=== PATIENT | female | born 1980 | race Caucasian/White ===

== ENCOUNTER 2024-04-04 01:52 | Emergency (ER) | payer OTHER, SELFPAY ==
[2024-04-04 03:06] VITALS: BP 151/92; PULSE 88; RESP 16; TEMP 36.6; O2SAT 97
--- NOTE | 2024-04-04 03:08 | PC.NURSE ---
Patient states that she took a bath with bleach tonight to help with the rash
[2024-04-04 03:30] VITALS: BP 125/94; PULSE 83; RESP 16; O2SAT 98
[2024-04-04 05:24] VITALS: BP 125/66; PULSE 77; RESP 16; O2SAT 97
[2024-04-04] MEDS: dexAMETHasone SOD PHOS INJ 10 MG/ML 1 ML VIAL IM (05:51)
--- NOTE | 2024-04-04 05:56 | ED.GENADULT ---
HPI - General Adult General Chief complaint: Unspecified Stated complaint: generalized body rash Time Seen by Provider: 04/04/24 05:39 History of Present Illness HPI narrative: Patient is a 43-year-old female who presents emergency department with chief complaint of urticaria and rash. The patient reports that she recently was treated for poison myra completed her course of steroids and reports that she has now had return of the rash patient states that she is itching all over reports that she does have hydroxyzine at home. The patient reports no airway compromise denies angioedema of the mouth or tongue. The patient reports that she also may have been exposed to bedbugs. Related Data Allergies Allergy/AdvReac Type Severity Reaction Status Date / Time hydrocodone AdvReac Unknown Nausea and Verified 04/04/24 02:03 Vomiting Review of Systems Review of Systems: A 10 system review of systems was completed on the patient and is negative except for what is stated in the HPI. Nursing and ancillary documentation was reviewed. [facility]LY [facility] Past Medical History Medical History Anxiety Depression Encounter for IUD insertion 11/29/08 Mirena insertion Encounter for IUD removal 04/23/09 Mirena removal Nexplanon insertion 05/15/15 Surgical History Surgical History History of cholecystectomy (12/08/16) Family History Family History Mother Hypertension Father Malignant neoplasm of liver Other Breast cancer paternal aunt Exam Narrative: GENERAL: Well-appearing, well-nourished, and in no acute distress. HEAD: Normocephalic, atraumatic. EYES: PERRLA and EOMI. ENT: Nares clear, no rhinorrhea or epistaxis. Mucous membranes moist. NECK: Supple. CHEST: Clear to auscultation. No respiratory distress. HEART: Regular rate and rhythm. No murmur heard. Normal peripheral pulses. ABDOMEN: Soft, nontender, nondistended, normal active bowel sounds. EXTREMITIES: Normal range of motion. No edema. SKIN: Erythematous rash amongst the upper extremities lower extremities and face.. NEURO: No focal deficits. Alert and oriented x3. PSYCH: Normal mood and affect. Course Vital Signs Vital signs: Vital Signs Temperature 36.6 C 04/04/24 03:06 Pulse Rate 88 04/04/24 03:06 Respiratory Rate 16 04/04/24 03:06 Blood Pressure 151/92 H 04/04/24 03:06 Pulse Oximetry 97 04/04/24 03:06 Temperature 36.6 C 04/04/24 03:06 Pulse Rate 77 04/04/24 05:24 Respiratory Rate 16 04/04/24 05:24 Blood Pressure 125/66 04/04/24 05:24 Pulse Oximetry 97 04/04/24 05:24 Medical Decision Making MDM Narrative Medical decision making narrative: Differential diagnosis includes poison myra, contact dermatitis, allergic reaction The patient was given a dose of Decadron in the emergency department started on prednisone 40 mg daily the patient should follow-up with her primary care provider There was also some question of whether the patient has been exposed to bedbugs the patient's exam was more consistent with poison myra or contact dermatitis reaction the patient was given information on bed bug bites Vital Signs Vital Signs: Vital Signs Temperature 36.6 C 04/04/24 03:06 Pulse Rate 88 04/04/24 03:06 Respiratory Rate 16 04/04/24 03:06 Blood Pressure 151/92 H 04/04/24 03:06 Pulse Oximetry 97 04/04/24 03:06 Temperature 36.6 C 04/04/24 03:06 Pulse Rate 77 04/04/24 05:24 Respiratory Rate 16 04/04/24 05:24 Blood Pressure 125/66 04/04/24 05:24 Pulse Oximetry 97 04/04/24 05:24 Discharge Plan Discharge Clinical Impression: Poison myra, Allergic reaction Patient Disposition: Home, Self-Care Condition: Stable Instructions: Antibiotic Form, Poison Myra (ED), Allergies (ED),
== END 2024-04-04 06:15 | disposition home or self-care (01) ==
PROVIDERS: Emergency Provider Emergency Medicine; PCP Physician Assistant
DX: L23.7 Allergic contact dermatitis due to plants, except food (principal); Z90.49 Acquired absence of other specified parts of digestive tract
CPT/HCPCS: 96372; 99283; J1100